=== PATIENT | female | born 1950 | race Two or more races ===

== ENCOUNTER 2017-11-25 10:14 | Outpatient (CLI) | payer OTHER | END 2017-11-25 10:22 | disposition home or self-care (01) | LOC: SONOGRAMA 10:14 → MAMO-SONO 10:15 → SONOGRAMA 10:22 → MAMO-SONO 11-26 10:15 | DX: N39.41 Urge incontinence (principal) ==

== ENCOUNTER 2018-05-29 11:25 | Outpatient (CLI) | payer OTHER | END 2018-06-01 13:19 | disposition home or self-care (01) | LOC: NUCLEAR 11:25 | DX: M81.0 Age-related osteoporosis without current pathological fracture (principal) ==

== ENCOUNTER 2019-11-29 13:02 | Outpatient (CLI) | payer OTHER | END 2019-11-29 15:13 | disposition home or self-care (01) | LOC: MAMO-SONO 13:02 | PROVIDERS: ATTEND Surgery | DX: N60.12 Diffuse cystic mastopathy of left breast (principal); N60.11 Diffuse cystic mastopathy of right breast; Z12.31 Encounter for screening mammogram for malignant neoplasm of breast; Z87.898 Personal history of other specified conditions ==

== ENCOUNTER 2019-12-03 13:47 | Outpatient (CLI) | payer OTHER | END 2019-12-03 14:02 | disposition home or self-care (01) | LOC: NUCLEAR 13:47 | PROVIDERS: ATTEND Internal Medicine Rheumatology | DX: M81.0 Age-related osteoporosis without current pathological fracture (principal) ==

== ENCOUNTER 2020-03-23 14:22 | Outpatient (CLI) | payer OTHER | END 2020-03-23 14:26 | disposition home or self-care (01) | LOC: RAD 14:22 | PROVIDERS: ATTEND Internal Medicine Rheumatology | DX: M15.1 Heberden's nodes (with arthropathy) (principal); M79.642 Pain in left hand; M79.641 Pain in right hand ==

== ENCOUNTER 2022-07-15 13:30 | Outpatient (CLI) | payer OTHER | END 2022-07-15 13:38 | disposition home or self-care (01) | LOC: MAMO-SONO 13:30 | DX: R92.8 Other abnormal and inconclusive findings on diagnostic imaging of breast (principal) ==

== ENCOUNTER 2023-12-23 11:56 | Outpatient (CLI) | payer OTHER | END 2023-12-23 12:03 | disposition home or self-care (01) | LOC: MAMO-SONO 11:56 | DX: R92.8 Other abnormal and inconclusive findings on diagnostic imaging of breast (principal); Z12.31 Encounter for screening mammogram for malignant neoplasm of breast ==

== ENCOUNTER 2024-02-10 13:01 | Outpatient (CLI) | payer OTHER | END 2024-02-10 13:09 | disposition home or self-care (01) | LOC: MRI 13:01 | DX: M25.511 Pain in right shoulder (principal) | CPT/HCPCS: 73221 ==

== ENCOUNTER → 2025-01-17 | Outpatient (CLI) | payer OTHER | END | disposition home or self-care (01) | LOC: NUCLEAR 09:50 | DX: M81.0 Age-related osteoporosis without current pathological fracture (principal) ==